=== PATIENT | male | born 1935 | race Caucasian/White ===

== ENCOUNTER 2020-03-29 13:53 | Outpatient (CLI) | payer MEDICARE | END 2020-03-29 23:59 | disposition home or self-care (01) | LOC: RAD 13:53 | PROVIDERS: ATTEND Internal Medicine Cardiovascular Disease | DX: Z02.9 Encounter for administrative examinations, unspecified (principal) ==

== ENCOUNTER → 2020-06-03 | Outpatient (CLI) | payer MEDICARE ==
[~2020-06-03] VITALS: Ht 167.6 cm; Wt 71.4 kg
[~2020-06-03] MED LIST: AMIO200T42 PO; ATOR40TA PO; CARV3.1212 PO; FURO40TA6 PO; NITR0.6T4 SL; POTA20TA6 PO; PROPOFOL 10 MG/ML, 20ML ONE; RIVA15TA PO
[2020-06-03 09:05] VITALS: BP 103/65
[2020-06-03 10:00] LABS: ANION GAP 4 mmol/L (5-15); CALCIUM 9.3 mg/dL (8.5-10.1); CHLORIDE 102 mmol/L (98-107); CREATININE 2.16 mg/dL (0.7-1.3)
== END | disposition home or self-care (01) ==
LOC: STAR 08:00 → EDSTATUS 10:30
PROVIDERS: ATTEND Internal Medicine Cardiovascular Disease
DX: I47.2 Ventricular tachycardia (principal); I48.91 Unspecified atrial fibrillation; I25.5 Ischemic cardiomyopathy
CPT/HCPCS: 36415; 80048; 92960; J2704